=== PATIENT | female | born 1995 | race American Indian/Alaskan Native ===

== ENCOUNTER 2018-01-13 03:39 | Emergency (ER) | payer OTHER ==
[2018-01-13 04:33] LABS: Hematocrit 35.7 % (30.3-42.9); Hemoglobin 12.6 gm/dl (10.1-14.3); Mean Corpuscular HGB Conc 35 % (30-34); Mean Corpuscular Hemoglobin 28 pg (28-32); Mean Corpuscular Volume 80 fl (79-97); Platelet Count 294 K/mm3 (140-440); Red Blood Count 4.49 M/mm3 (3.65-5.03); Red Cell Distribution Width 14.7 % (13.2-15.2)
[2018-01-13 04:54] LABS: Alanine Aminotransferase 11 units/L (7-56); Albumin 3.8 g/dL (3.9-5); BUN/Creatinine Ratio 16; Blood Urea Nitrogen 13 mg/dL (7-17); Calcium 8.7 mg/dL (8.4-10.2); Hemolysis Index 48
[2018-01-13 05:11] LABS: Anisocytosis 1+; Stomatocytes Few; Total Cells Counted 100
[2018-01-13 07:03] LABS: Bilirubin,Urine NEG (Negative); Blood,Urine LG (Negative); Color,Urine Yellow (Yellow); Urobilinogen,Urine < 2.0 mg/dL (<2.0)
[2018-01-13 07:07] LABS: RBC,Urine > 182.0 /HPF (0.0-6.0)
[2018-01-13] MEDS ORDERED: TYLENOL PO ONE (08:20)
[2018-01-13] MEDS ORDERED: NACL 0.9% 1000 ML 1,000 ML IV ONE (08:20)
[2018-01-13] MEDS ORDERED: ZOFRAN IV ONE (08:20)
--- NOTE | 2018-01-13 09:38 | Ultrasound Report ---
Pelvic and transvaginal sonography: History: with vaginal bleeding. Findings: Uterus measures 8.2 x 4.2 x 4.6 cm. Endometrial thickness is 16.3 mm. No fluid in the endometrium. There is single into a tiny gestation noted. Gestational sac diameter is 19.6 mm corresponding to 6 weeks and 6 days which is positioned. CRL fetus is 2.8 mm corresponding to 5 weeks and 6 days of gestation. The gestational sac is identified in the cervix. heart rate could not be obtained. Right ovary 2.6 x 1.4 x 1.6 cm. Cyst in the right ovary measures 0.9 cm. Left ovary 2.5 x 0.8 x 1.7 cm. No mass. Impression: Single gestational sac within the cervix. No gestational sac identified in endometrium of the uterus. Dr. Lawson was informed of the findings at 9:15 AM on 01/13/18.
[2018-01-13] MEDS ORDERED: PERCOCET 5/325 ONE (09:44)
[2018-01-13] MEDS ORDERED: PERCOCET 5/325 PO ONE (09:45)
--- NOTE | 2018-01-13 10:10 | Emergency Department Report ---
ED Female HPI - General Chief complaint: Abdominal Pain Stated complaint: ABD/BACK PAIN Time Seen by Provider: 01/13/18 08:06 Source: patient Mode of arrival: Ambulatory Limitations: No Limitations - History of Present Illness Initial comments: This is a 23-year-old Female who is approximate 7 weeks complaining of lower abdominal pain. Patient states the pain is a 10 out of 10 in severity as crampy radiation to the back. Patient also started having some vaginal bleeding last night. Patient states the bleeding is at the level of.. Patient states that it is also some small clots present as well. Patient denies fevers nausea vomiting diarrhea chest pain cough at this time. - Related Data Previous Rx's Medication Instructions Recorded Last Taken Type Cyclobenzaprine HCl [Flexeril 5 MG 5 mg PO PRN #15 tablet 07/18/16 Unknown Rx TAB] Ibuprofen [Motrin] 600 mg PO Q8H PRN #30 tablet 07/18/16 Unknown Rx Ibuprofen [Motrin] 800 mg PO Q8HR PRN #20 tablet 01/13/18 Unknown Rx Nitrofurantoin Monohyd/M-Cryst 100 mg PO BID #14 capsule 01/13/18 Unknown Rx [Macrobid 100 mg Capsule] oxyCODONE /ACETAMINOPHEN [Percocet 1 tab PO Q6HR PRN #12 tablet 01/13/18 Unknown Rx 5/325] Allergies Allergy/AdvReac Type Severity Reaction Status Date / Time No Known Allergies Allergy Unverified 07/18/16 14:36 ED Review of Systems ROS: Stated complaint: ABD/BACK PAIN Other details as noted in HPI Comment: All other systems reviewed and negative ED Past Medical Hx - Past Medical History Previous Medical History?: No - Surgical History Past Surgical History?: No - Social History Smoking Status: Current Every Day Smoker Substance Use Type: None - Medications Home Medications: Home Medications Medication Instructions Recorded Confirmed Last Taken Type Cyclobenzaprine HCl [Flexeril 5 MG 5 mg PO PRN #15 tablet 07/18/16 Unknown Rx TAB] Ibuprofen [Motrin] 600 mg PO Q8H PRN #30 tablet 07/18/16 Unknown Rx Ibuprofen [Motrin] 800 mg PO Q8HR PRN #20 tablet 01/13/18 Unknown Rx Nitrofurantoin Monohyd/M-Cryst 100 mg PO BID #14 capsule 01/13/18 Unknown Rx [Macrobid 100 mg Capsule] oxyCODONE /ACETAMINOPHEN [Percocet 1 tab PO Q6HR PRN #12 tablet 01/13/18 Unknown Rx 5/325] ED Physical Exam - General Limitations: No Limitations General appearance: alert, in no apparent distress - Head Head exam: Present: atraumatic, normocephalic - Eye Eye exam: Present: normal appearance - ENT ENT exam: Present: mucous membranes moist - Neck Neck exam: Present: normal inspection - Respiratory Respiratory exam: Present: normal lung sounds bilaterally. Absent: respiratory distress, wheezes, rales - Cardiovascular Cardiovascular Exam: Present: regular rate, normal rhythm. Absent: systolic murmur, diastolic murmur, rubs, gallop - GI/Abdominal GI/Abdominal exam: Present: soft, tenderness (suprapubic tenderness), normal bowel sounds. Absent: distended, guarding, rebound, rigid - Extremities Exam Extremities exam: Present: normal inspection - Back Exam Back exam: Present: normal inspection - Neurological Exam Neurological exam: Present: alert, oriented X3 - Psychiatric Psychiatric exam: Present: normal affect, normal mood - Skin Skin exam: Present: warm, dry, intact, normal color. Absent: rash ED Course Vital Signs 01/13/18 01/13/18 01/13/18 03:48 08:07 08:40 Temperature 98.8 F 97.9 F Pulse Rate 103 H 83 Respiratory 20 18 18 Rate Blood Pressure 167/69 Blood Pressure 138/91 [Left] O2 Sat by Pulse 97 97 Oximetry ED Medical Decision Making - Lab Data Result diagrams: 01/13/18 04:06 01/13/18 04:06 Lab Results 01/13/18 01/13/18 01/13/18 Range/Units 04:06 04:06 04:06 WBC 11.9 H (4.5-11.0) K/mm3 RBC 4.49 (3.65-5.03) M/mm3 Hgb 12.6 (10.1-14.3) gm/dl Hct 35.7 (30.3-42.9) % MCV 80 (79-97) fl MCH 28 (28-32) pg MCHC 35 H (30-34) % RDW 14.7 (13.2-15.2) % Plt Count 294 (140-440) K/mm3 Lymph # Kosher Sealer Add Manual Diff Complete Total Counted 100 Seg Neuts % (Manual) 46.0 (40.0-70.0) % Band Neutrophils % 0 % Lymphocytes % (Manual) 46.0 H (13.4-35.0) % Reactive Lymphs % (Man) 0 % Monocytes % (Manual) 3.0 (0.0-7.3) % Eosinophils % (Manual) 3.0 (0.0-4.3) % Basophils % (Manual) 2.0 H (0.0-1.8) % Metamyelocytes % 0 % Myelocytes % 0 % Promyelocytes % 0 % Blast Cells % 0 % Nucleated RBC % Not Reportable Seg Neutrophils # Man 5.5 (1.8-7.7) K/mm3 Band Neutrophils # 0.0 K/mm3 Lymphocytes # (Manual) 5.5 H (1.2-5.4) K/mm3 Abs React Lymphs (Man) 0.0 K/mm3 Monocytes # (Manual) 0.4 (0.0-0.8) K/mm3 Eosinophils # (Manual) 0.4 (0.0-0.4) K/mm3 Basophils # (Manual) 0.2 H (0.0-0.1) K/mm3 Metamyelocytes # 0.0 K/mm3 Myelocytes # 0.0 K/mm3 Promyelocytes # 0.0 K/mm3 Blast Cells # 0.0 K/mm3 WBC Morphology Not Reportable Hypersegmented Neuts Not Reportable Hyposegmented Neuts Not Reportable Hypogranular Neuts Not Reportable Smudge Cells Not Reportable Toxic Granulation Not Reportable Toxic Vacuolation Not Reportable Dohle Bodies Not Reportable Pelger-Huet Anomaly Not Reportable Ahsan Rods Not Reportable Platelet Estimate Appears normal Clumped Platelets Not Reportable Plt Clumps, EDTA Not Reportable Large Platelets Not Reportable Giant Platelets Not Reportable Platelet Satelliting Not Reportable Plt Morphology Comment Not Reportable RBC Morphology Not Reportable Dimorphic RBCs Not Reportable Polychromasia Not Reportable Hypochromasia Not Reportable Poikilocytosis Not Reportable Anisocytosis 1+ Microcytosis 1+ Macrocytosis Not Reportable Spherocytes Not Reportable Pappenheimer Bodies Not Reportable Sickle Cells Not Reportable Target Cells Not Reportable Tear Drop Cells Not Reportable Ovalocytes Not Reportable Stomatocytes Few Helmet Cells Not Reportable [place] Bodies Not Reportable [place] Rings Not Reportable [place] Cells Not Reportable Bite Cells Not Reportable Crenated Cell Not Reportable Elliptocytes Not Reportable Acanthocytes (Spur) Not Reportable Rouleaux Not Reportable Hemoglobin C Crystals Not Reportable Schistocytes Not Reportable Malaria parasites Not Reportable Rashid Bodies Not Reportable Hem Pathologist Commnt No Sodium 139 (137-145) mmol/L Potassium 3.9 (3.6-5.0) mmol/L Chloride 102.1 (98-107) mmol/L Carbon Dioxide 25 (22-30) mmol/L Anion Gap 16 mmol/L BUN 13 (7-17) mg/dL Creatinine 0.8 (0.7-1.2) mg/dL Estimated GFR > 60 ml/min BUN/Creatinine Ratio 16 % Glucose 81 (65-100) mg/dL Calcium 8.7 (8.4-10.2) mg/dL Total Bilirubin 0.20 (0.1-1.2) mg/dL AST 18 (5-40) units/L ALT 11 (7-56) units/L Alkaline Phosphatase 63 (35-129) units/L Total Protein 7.9 (6.3-8.2) g/dL Albumin 3.8 L (3.9-5) g/dL Albumin/Globulin Ratio 0.9 % HCG, Quant 2083 H (0-4) mIU/mL Urine Color (Yellow) Urine Turbidity (Clear) Urine pH (5.0-7.0) Ur Specific [place] (1.003-1.030) Urine Protein (Negative) mg/dL Urine Glucose (UA) (Negative) mg/dL Urine Ketones (Negative) mg/dL Urine Blood (Negative) Urine Nitrite (Negative) Urine Bilirubin (Negative) Urine Urobilinogen (<2.0) mg/dL Ur Leukocyte Esterase (Negative) Urine WBC (Auto) (0.0-6.0) /HPF Urine RBC (Auto) (0.0-6.0) /HPF U Epithel Cells (Auto) (0-13.0) /HPF Blood Type Antibody Screen 01/13/18 01/13/18 Range/Units 04:07 05:54 WBC (4.5-11.0) K/mm3 RBC (3.65-5.03) M/mm3 Hgb (10.1-14.3) gm/dl Hct (30.3-42.9) % MCV (79-97) fl MCH (28-32) pg MCHC (30-34) % RDW (13.2-15.2) % Plt Count (140-440) K/mm3 Lymph # Add Manual Diff Total Counted Seg Neuts % (Manual) (40.0-70.0) % Band Neutrophils % % Lymphocytes % (Manual) (13.4-35.0) % Reactive Lymphs % (Man) % Monocytes % (Manual) (0.0-7.3) % Eosinophils % (Manual) (0.0-4.3) % Basophils % (Manual) (0.0-1.8) % Metamyelocytes % % Myelocytes % % Promyelocytes % % Blast Cells % % Nucleated RBC % Seg Neutrophils # Man (1.8-7.7) K/mm3 Band Neutrophils # K/mm3 Lymphocytes # (Manual) (1.2-5.4) K/mm3 Abs React Lymphs (Man) K/mm3 Monocytes # (Manual) (0.0-0.8) K/mm3 Eosinophils # (Manual) (0.0-0.4) K/mm3 Basophils # (Manual) (0.0-0.1) K/mm3 Metamyelocytes # K/mm3 Myelocytes # K/mm3 Promyelocytes # K/mm3 Blast Cells # K/mm3 WBC Morphology Hypersegmented Neuts Hyposegmented Neuts Hypogranular Neuts Smudge Cells Toxic Granulation Toxic Vacuolation Dohle Bodies Pelger-Huet Anomaly Ahsan Rods Platelet Estimate Clumped Platelets Plt Clumps, EDTA Large Platelets Giant Platelets Platelet Satelliting Plt Morphology Comment RBC Morphology Dimorphic RBCs Polychromasia Hypochromasia Poikilocytosis Anisocytosis Microcytosis Macrocytosis Spherocytes Pappenheimer Bodies Sickle Cells Target Cells Tear Drop Cells Ovalocytes Stomatocytes Helmet Cells [place] Bodies [place] Rings Jose Cells Bite Cells Crenated Cell Elliptocytes Acanthocytes (Spur) Rouleaux Hemoglobin C Crystals Schistocytes Malaria parasites Rashid Bodies Hem Pathologist Commnt Sodium (137-145) mmol/L Potassium (3.6-5.0) mmol/L Chloride (98-107) mmol/L Carbon Dioxide (22-30) mmol/L Anion Gap mmol/L BUN (7-17) mg/dL Creatinine (0.7-1.2) mg/dL Estimated GFR ml/min BUN/Creatinine Ratio % Glucose (65-100) mg/dL Calcium (8.4-10.2) mg/dL Total Bilirubin (0.1-1.2) mg/dL AST (5-40) units/L ALT (7-56) units/L Alkaline Phosphatase (35-129) units/L Total Protein (6.3-8.2) g/dL Albumin (3.9-5) g/dL Albumin/Globulin Ratio % HCG, Quant (0-4) mIU/mL Urine Color Yellow (Yellow) Urine Turbidity Clear (Clear) Urine pH 6.0 (5.0-7.0) Ur Specific [place] 1.013 (1.003-1.030) Urine Protein 30 mg/dl (Negative) mg/dL Urine Glucose (UA) Neg (Negative) mg/dL Urine Ketones Neg (Negative) mg/dL Urine Blood Lg (Negative) Urine Nitrite Neg (Negative) Urine Bilirubin Neg (Negative) Urine Urobilinogen < 2.0 (<2.0) mg/dL Ur Leukocyte Esterase Neg (Negative) Urine WBC (Auto) 49.0 H (0.0-6.0) /HPF Urine RBC (Auto) > 182.0 (0.0-6.0) /HPF U Epithel Cells (Auto) 1.0 (0-13.0) /HPF Blood Type A POSITIVE Antibody Screen Negative - Radiology Data Patient: NADEEM DAVIES MR#: [id number] : 1995 Acct: [id number] Age/Sex: 23 / F ADM Date: 01/13/18 Loc: ED Attending Dr: Ordering Physician: ALBERTA LAWSON MD Date of Service: 01/13/18 Procedure(s): US OB transvaginal Accession Number(s): [id number] cc: ALBERTA LAWSON MD Pelvic and transvaginal sonography: History: with vaginal bleeding. Findings: Uterus measures 8.2 x 4.2 x 4.6 cm. Endometrial thickness is 16.3 mm. No fluid in the endometrium. There is single into a tiny gestation noted. Gestational sac diameter is 19.6 mm corresponding to 6 weeks and 6 days which is positioned. CRL fetus is 2.8 mm corresponding to 5 weeks and 6 days of gestation. The gestational sac is identified in the cervix. heart rate could not be obtained. Right ovary 2.6 x 1.4 x 1.6 cm. Cyst in the right ovary measures 0.9 cm. Left ovary 2.5 x 0.8 x 1.7 cm. No mass. Impression: Single gestational sac within the cervix. No gestational sac identified in endometrium of the uterus. Dr. Lawson was informed of the findings at 9:15 AM on 01/13/18. Transcribed By: PTP Dictated By: BETSEY BLUM MD Electronically Authenticated By: BETSEY BLUM MD Signed Date/Time: 01/13/18 0916 - Medical Decision Making Patient is noted to have a gestational sac in the cervix which is suggestive of a inevitable miscarriage. Patient was given pain meds will be discharged home. Critical care attestation.: If time is entered above; I have spent that time in minutes in the direct care of this critically ill patient, excluding procedure time. ED Disposition Clinical Impression: Inevitable complete miscarriage without complication UTI (urinary tract infection) Qualifiers: Urinary tract infection type: acute cystitis Hematuria presence: without hematuria Qualified Code(s): N30.00 - Acute cystitis without hematuria Disposition: -01 TO HOME OR SELFCARE Is pt being admited?: No Does the pt Need Aspirin: No Condition: Stable Instructions: Spontaneous Miscarriage (ED), Urinary Tract Infection in Women ( ED) Referrals: DAYNA WONG MD [Staff Physician] - 3-5 Days
[2018-01-13 11:13] VITALS: BP 124/83
== END 2018-01-13 10:20 | disposition home or self-care (01) ==
LOC: ED 03:39
DX: O03.9 Complete or unspecified spontaneous abortion without complication (principal); O23.41 Unspecified infection of urinary tract in pregnancy, first trimester; Z3A.01 Less than 8 weeks gestation of pregnancy; O99.331 Smoking (tobacco) complicating pregnancy, first trimester
CPT/HCPCS: 36415; 76801; 76817; 80053; 81001; 84702; 85007; 85025; 86850; 86900; 86901; 96361; 96374; 99284; J2405; J7030

== ENCOUNTER 2018-12-04 13:29 | Emergency (ER) | payer MEDICAID, OTHER ==
--- NOTE | 2018-12-04 14:15 | Emergency Department Report ---
Blank Doc - Documentation Documentation: 1 day history of LUQ abdominal pain and diarrhea. Tried to eat wendys but made symptoms worsen. Denies . (tearful in triage_)
[2018-12-04 14:47] LABS: Basophils # (Auto) 0.1 K/mm3 (0.0-0.1); Basophils % (Auto) 0.9 % (0.0-1.8); Eosinophils # (Auto) 0.1 K/mm3 (0.0-0.4); Eosinophils % (Auto) 0.9 % (0.0-4.3); Hematocrit 39.5 % (30.3-42.9); Hemoglobin 13.7 gm/dl (10.1-14.3); Lymphocytes # (Auto) 3.1 K/mm3 (1.2-5.4); Lymphocytes % (Auto) 33.3 % (13.4-35.0); Mean Corpuscular HGB Conc 35 % (30-34); Mean Corpuscular Volume 80 fl (79-97); Monocytes # (Auto) 0.6 K/mm3 (0.0-0.8); Monocytes % (Auto) 6.8 % (0.0-7.3); Platelet Count 293 K/mm3 (140-440); Red Blood Count 4.94 M/mm3 (3.65-5.03); Red Cell Distribution Width 13.9 % (13.2-15.2)
[2018-12-04 14:58] LABS: Alanine Aminotransferase 9 units/L (7-56); Albumin 3.9 g/dL (3.9-5); BUN/Creatinine Ratio 12; Blood Urea Nitrogen 7 mg/dL (7-17); Calcium 8.8 mg/dL (8.4-10.2); Hemolysis Index 6
[2018-12-04 15:14] LABS: Bilirubin,Urine NEG (Negative); Blood,Urine NEG (Negative); Color,Urine Yellow (Yellow); Mucus,Urine FEW /HPF; Protein,Urine <15 mg/dL mg/dL (Negative); Urobilinogen,Urine < 2.0 mg/dL (<2.0)
[2018-12-04 15:17] LABS: HCG Qualitative,Urine Negative (Negative)
[2018-12-04] MEDS ORDERED: ZOFRAN IV ONE (16:23)
[2018-12-04] MEDS ORDERED: MORPHINE IV ONE (16:23)
[2018-12-04] MEDS ORDERED: NACL 0.9% 1000 ML 1,000 ML IV ONE (16:23)
--- NOTE | 2018-12-04 18:53 | Cat Scan Report ---
PROCEDURE: CT ABDOMEN PELVIS W CON TECHNIQUE: Computerized axial tomography of the abdomen and pelvis was performed after the IV inject ion of iodinated nonionic contrast. HISTORY: abd pain COMPARISONS: None . FINDINGS: Lower Lung logan: No focal abnormalities seen. Upper Abdomen: The liver, gallbladder, adrenal glands, the pancreas and spleen are unremarkable. Kidneys, Ureters and Urinary bladder: Kidneys and ureters are unremarkable. No renal masses cannot Hydronephrosis visualized. No ureteral calculi are seen. Urinary bladder is only partially filled and difficult to evaluate. No gross is seen Retroperitoneum: Atherosclerotic changes are seen in the abdominal aorta. No aneurysm is visualized. Nonspecific subcentimeter lymph nodes are seen in the retroperitoneum. No pathologically enlarged ly mph nodes are identified. Bowel: There is mild wall thickening seen throughout the transverse colon as well as a short segment of the descending colon. There is also mild decreased density in the submucosal adipose tissue. The appearance suggesting nonspecific colitis. Colon otherwise appears normal. No evidence of bowel obstr uction or ascites. There is no free intraperitoneal gas. Normal-appearing appendix is seen in the rig ht lower quadrant. Small umbilical hernia present containing adipose tissue. No herniated loops of jana wel are seen. Reproductive organs: Uterus is mildly deviated to the left of midline and otherwise is unremarkable. No abnormal adnexal masses are seen. Small amount of nonspecific free fluid is seen in the cul-de-sa c. Other: No acute bone abnormalities are identified. IMPRESSION: Mild prominence transverse colon and a short segment of the descending colon as described suggesting nonspecific colitis. Bowel loops otherwise are unremarkable. No other abnormalities are identified. This document is electronically signed by Chidi Palma MD., December 04 2018 06:51:27 PM ET
[2018-12-04 19:03] VITALS: BP 140/80
--- NOTE | 2018-12-04 19:07 | Emergency Department Report ---
ED Abdominal Pain HPI - General Chief Complaint: Abdominal Pain Stated Complaint: STOMACH/BACK PAIN Time Seen by Provider: 12/04/18 14:13 Source: patient Mode of arrival: Ambulatory Limitations: No Limitations - History of Present Illness Initial Comments: 23-year-old -[place] female comes in complaining of epigastric abdominal pain. Radiates to her back. Patient did not see nausea vomiting but does have diarrhea. MD Complaint: abdominal pain -: This morning Location: epigastric Migration to: no migration Severity scale (0 -10): 0 Quality: cramping Improves With: nothing Associated Symptoms: diarrhea - Related Data Previous Rx's Medication Instructions Recorded Last Taken Type Cyclobenzaprine HCl [Flexeril 5 MG 5 mg PO PRN #15 tablet 07/18/16 Unknown Rx TAB] Ibuprofen [Motrin] 600 mg PO Q8H PRN #30 tablet 07/18/16 Unknown Rx Ibuprofen [Motrin] 800 mg PO Q8HR PRN #20 tablet 01/13/18 Unknown Rx Nitrofurantoin Monohyd/M-Cryst 100 mg PO BID #14 capsule 01/13/18 Unknown Rx [Macrobid 100 mg Capsule] oxyCODONE /ACETAMINOPHEN [Percocet 1 tab PO Q6HR PRN #12 tablet 01/13/18 Unknown Rx 5/325] Ciprofloxacin HCl [Cipro] 500 mg PO QDAY #5 tablet 12/04/18 Unknown Rx Hyoscyamine Subl [Levsin Sl 0.125 0.125 mg SL Q6HR PRN #12 tab 12/04/18 Unknown Rx TAB] metroNIDAZOLE [Flagyl] 500 mg PO Q12HR #10 tab 12/04/18 Unknown Rx Allergies Allergy/AdvReac Type Severity Reaction Status Date / Time No Known Allergies Allergy Unverified 07/18/16 14:36 ED Review of Systems ROS: Stated complaint: STOMACH/BACK PAIN Other details as noted in HPI Comment: All other systems reviewed and negative ED Past Medical Hx - Past Medical History Previous Medical History?: No - Surgical History Past Surgical History?: No - Social History Smoking Status: Current Every Day Smoker Substance Use Type: None - Medications Home Medications: Home Medications Medication Instructions Recorded Confirmed Last Taken Type Cyclobenzaprine HCl [Flexeril 5 MG 5 mg PO PRN #15 tablet 07/18/16 Unknown Rx TAB] Ibuprofen [Motrin] 600 mg PO Q8H PRN #30 tablet 07/18/16 Unknown Rx Ibuprofen [Motrin] 800 mg PO Q8HR PRN #20 tablet 01/13/18 Unknown Rx Nitrofurantoin Monohyd/M-Cryst 100 mg PO BID #14 capsule 01/13/18 Unknown Rx [Macrobid 100 mg Capsule] oxyCODONE /ACETAMINOPHEN [Percocet 1 tab PO Q6HR PRN #12 tablet 01/13/18 Unknown Rx 5/325] Ciprofloxacin HCl [Cipro] 500 mg PO QDAY #5 tablet 12/04/18 Unknown Rx Hyoscyamine Subl [Levsin Sl 0.125 0.125 mg SL Q6HR PRN #12 tab 12/04/18 Unknown Rx TAB] metroNIDAZOLE [Flagyl] 500 mg PO Q12HR #10 tab 12/04/18 Unknown Rx ED Physical Exam - General Limitations: No Limitations General appearance: alert, in no apparent distress - Head Head exam: Present: atraumatic, normocephalic - Eye Eye exam: Present: normal appearance - ENT ENT exam: Present: mucous membranes moist - Respiratory Respiratory exam: Present: normal lung sounds bilaterally. Absent: respiratory distress - Cardiovascular Cardiovascular Exam: Present: regular rate, normal rhythm. Absent: systolic murmur, diastolic murmur, rubs, gallop - GI/Abdominal GI/Abdominal exam: Present: soft, normal bowel sounds - Extremities Exam Extremities exam: Present: normal inspection - Back Exam Back exam: Present: normal inspection - Neurological Exam Neurological exam: Present: alert, oriented X3, normal gait - Psychiatric Psychiatric exam: Present: normal affect, normal mood - Skin Skin exam: Present: warm, dry, intact, normal color. Absent: rash ED Course Vital Signs 12/04/18 12/04/18 14:13 19:02 Temperature 98.1 F Pulse Rate 72 80 Respiratory 18 18 Rate Blood Pressure 143/83 Blood Pressure 140/80 [Right] O2 Sat by Pulse 100 100 Oximetry ED Medical Decision Making - Lab Data Result diagrams: 12/04/18 14:26 12/04/18 14:26 Lab Results 12/04/18 12/04/18 12/04/18 Range/Units 14:26 14:26 14:38 WBC 9.4 (4.5-11.0) K/mm3 RBC 4.94 (3.65-5.03) M/mm3 Hgb 13.7 (10.1-14.3) gm/dl Hct 39.5 (30.3-42.9) % MCV 80 (79-97) fl MCH 28 (28-32) pg MCHC 35 H (30-34) % RDW 13.9 (13.2-15.2) % Plt Count 293 (140-440) K/mm3 Lymph % (Auto) 33.3 (13.4-35.0) % [place] % (Auto) 6.8 (0.0-7.3) % Eos % (Auto) 0.9 (0.0-4.3) % Baso % (Auto) 0.9 (0.0-1.8) % Lymph # 3.1 (1.2-5.4) K/mm3 [place] # 0.6 (0.0-0.8) K/mm3 Eos # 0.1 (0.0-0.4) K/mm3 Baso # 0.1 (0.0-0.1) K/mm3 Seg Neutrophils % 58.1 (40.0-70.0) % Seg Neutrophils # 5.4 (1.8-7.7) K/mm3 Sodium 137 (137-145) mmol/L Potassium 4.0 (3.6-5.0) mmol/L Chloride 105.2 (98-107) mmol/L Carbon Dioxide 23 (22-30) mmol/L Anion Gap 13 mmol/L BUN 7 (7-17) mg/dL Creatinine 0.6 L (0.7-1.2) mg/dL Estimated GFR > 60 ml/min BUN/Creatinine Ratio 12 % Glucose 91 (65-100) mg/dL Calcium 8.8 (8.4-10.2) mg/dL Total Bilirubin 0.50 (0.1-1.2) mg/dL AST 13 (5-40) units/L ALT 9 (7-56) units/L Alkaline Phosphatase 65 (35-129) units/L Total Protein 8.3 H (6.3-8.2) g/dL Albumin 3.9 (3.9-5) g/dL Albumin/Globulin Ratio 0.9 % Lipase 22 (13-60) units/L Urine Color Yellow (Yellow) Urine Turbidity Clear (Clear) Urine pH 7.0 (5.0-7.0) Ur Specific [place] 1.013 (1.003-1.030) Urine Protein <15 mg/dl (Negative) mg/dL Urine Glucose (UA) Neg (Negative) mg/dL Urine Ketones 20 (Negative) mg/dL Urine Blood Neg (Negative) Urine Nitrite Neg (Negative) Urine Bilirubin Neg (Negative) Urine Urobilinogen < 2.0 (<2.0) mg/dL Ur Leukocyte Esterase Neg (Negative) Urine WBC (Auto) 1.0 (0.0-6.0) /HPF Urine RBC (Auto) 3.0 (0.0-6.0) /HPF U Epithel Cells (Auto) 1.0 (0-13.0) /HPF Urine Mucus Few /HPF Urine HCG, Qual Negative (Negative) - Radiology Data Radiology results: report reviewed Patient: NADEEM DAVIES MR #: [id number] : 1995 Acct:[id number] Age/Sex: 23 / F ADM Date: 12/04/18 Loc: ED Attending Dr: Ordering Physician: KEYSHA TOWNSEND NP Date of Service: 12/04/18 Procedure(s): CT abdomen pelvis w con Accession Number(s): [id number] cc: KEYSHA TOWNSEND NP PROCEDURE: CT ABDOMEN PELVIS W CON TECHNIQUE: Computerized axial tomography of the abdomen and pelvis was performed after the IV injection of iodinated nonionic contrast. HISTORY: abd pain COMPARISONS: None . FINDINGS: Lower Lung logan: No focal abnormalities seen. Upper Abdomen: The liver, gallbladder, adrenal glands, the pancreas and spleen are unremarkable. Kidneys, Ureters and Urinary bladder: Kidneys and ureters are unremarkable. No renal masses cannot Hydronephrosis visualized. No ureteral calculi are seen. Urinary bladder is only partially filled and difficult to evaluate. No gross is seen Retroperitoneum: Atherosclerotic changes are seen in the abdominal aorta. No aneurysm is visualized. Nonspecific subcentimeter lymph nodes are seen in the retroperitoneum. No pathologically enlarged lymph nodes are identified. Bowel: There is mild wall thickening seen throughout the transverse colon as well as a short segment of the descending colon. There is also mild decreased density in the submucosal adipose tissue. The appearance suggesting nonspecific colitis. Colon otherwise appears normal. No evidence of bowel obstruction or ascites. There is no free intraperitoneal gas. Normal- appearing appendix is seen in the right lower quadrant. Small umbilical hernia present containing adipose tissue. No herniated loops of bowel are seen. Reproductive organs: Uterus is mildly deviated to the left of midline and otherwise is unremarkable. No abnormal adnexal masses are seen. Small amount of nonspecific free fluid is seen in the cul-de-sac. Other: No acute bone abnormalities are identified. IMPRESSION: Mild prominence transverse colon and a short segment of the descending colon as described suggesting nonspecific colitis. Bowel loops otherwise are unremarkable. No other abnormalities are identified. This document is electronically signed by Chidi Jaramillo MD., December 04 2018 06:51:27 PM ET Transcribed By: DFN Dictated By: CHIDI JARAMILLO MD Electronically Authenticated By: CHIDI JARAMILLO MD Signed Date/Time: 12/04/181852 DD/ 07 TD/TT: 12/04/181807 - Medical Decision Making Patient has been evaluated for this provider fast track. Patient be treated for colitis. Patient's increase her fluid intake events or diabetes tolerated and follow up with her primary care provider if symptoms persist or gets worse. Critical care attestation.: If time is entered above; I have spent that time in minutes in the direct care of this critically ill patient, excluding procedure time. ED Disposition Clinical Impression: Colitis Disposition: DC-01 TO HOME OR SELFCARE Is pt being admited?: No Does the pt Need Aspirin: No Condition: Stable Instructions: Abdominal Pain (ED) Additional Instructions: Take medication as prescribed. Increase her fluid intake and advance her diet as tolerated. Follow-up with her primary care provider if his symptoms persist or gets worse. Prescriptions: Ciprofloxacin HCl [Cipro] 500 mg PO QDAY #5 tablet metroNIDAZOLE [Flagyl] 500 mg PO Q12HR #10 tab Hyoscyamine Subl [Levsin Sl 0.125 TAB] 0.125 mg SL Q6HR PRN #12 tab PRN Reason: Pain , Severe (7-10) Referrals: SONDRA CABELLO MD [Primary Care Provider] - 3-5 Days Forms: Work/School Release Form(ED)
[2018-12-04] MEDS ORDERED: LEVSIN SL SL ONE (19:08)
== END 2018-12-04 19:24 | disposition home or self-care (01) ==
LOC: ED 13:29
DX: K52.9 Noninfective gastroenteritis and colitis, unspecified (principal); F17.200 Nicotine dependence, unspecified, uncomplicated
CPT/HCPCS: 36415; 74177; 80053; 81001; 81025; 83690; 85025; 96361; 96374; 96375; 99284; J2270; J2405; J7030; Q9967

== ENCOUNTER 2020-10-07 13:06 | Emergency (ER) | payer SELFPAY | END 2020-10-07 13:16 | LOC: ED 13:06 | DX: R05 Cough (principal); Z53.21 Procedure and treatment not carried out due to patient leaving prior to being seen by health care provider ==

== ENCOUNTER 2021-03-17 09:45 | Emergency (ER) | payer SELFPAY ==
[2021-03-17 10:59] VITALS: BP 104/77
[2021-03-17 11:52] LABS: Bacteria,Urine 1+ /HPF (Negative); Bilirubin,Urine NEG (Negative); Blood,Urine NEG (Negative); Color,Urine Yellow (Yellow); Mucus,Urine FEW /HPF; Protein,Urine <15 mg/dL mg/dL (Negative)
[2021-03-17] MEDS ORDERED: LIDOCAINE-MPF (1%) 10 MG/1 ML VIAL 5 ML INFILTRATI ONE (12:05)
[2021-03-17 12:07] LABS: HCG Qualitative,Urine Positive (Negative)
--- NOTE | 2021-03-17 12:51 | Ultrasound Report ---
ULTRASOUND PELVIS INDICATION: Left adnexal tenderness to palpation on exam. TECHNIQUE: Transvaginal. Duplex Color Doppler used: Yes. COMPARISON: CT abdomen and pelvis with contrast from 12/04/2018. Pelvic ultrasound from 01/13/2018. FINDINGS: Uterus: Present. Size: 7.7 x 4.3 x 5.3 cm. Endometrial complex: Normal measuring 1.1 cm. Mass lesions: None. Additional findings: None. Right Ovary: Size: 2.5 x 1.4 x 1.5 cm Blood flow: Normal. Cyst or mass: None. Left Ovary: Size: 4.4 x 1.8 x 2.2 cm Blood flow: Normal. Cyst or mass: A dominant follicle measures up to 1.3 cm. No other solid or cystic lesions. Urinary Bladder: Normal. Free Fluid: Small amount of free fluid is noted along the cul-de-sac. Additional Findings: None. IMPRESSION: 1. Nonspecific small amount of free fluid in the pelvis is likely physiologic in a patient of this ag e. Recent rupture of an ovarian cyst is also a consideration. 2. Additional findings as above. Signer Name: Brent Olmos MD Signed: 03/17/2021 12:47 PM Workstation Name: [id number]
--- NOTE | 2021-03-17 12:51 | Ultrasound Report ---
ULTRASOUND PELVIS INDICATION / CLINICAL INFORMATION: left adnexal ttp on exam. TECHNIQUE: Transabdominal. Duplex Color Doppler used: Yes. COMPARISON: None available FINDINGS: UTERUS: 7.7 x 4.3 x 5.3 cm. Endometrium is normal thickness measuring 10 mm. No focal uterine lesion identified. RIGHT ADNEXA: No significant ovarian cyst or mass. Normal color Doppler blood flow. LEFT ADNEXA: No significant ovarian cyst or mass Normal color Doppler blood flow. URINARY BLADDER: No significant abnormality. FREE FLUID: Small amount fluid within the posterior cul-de-sac ADDITIONAL FINDINGS: None. IMPRESSION: 1. No significant abnormality. Signer Name: Adonay Joaquin MD Signed: 03/17/2021 12:46 PM Workstation Name: [id number]
[2021-03-17] MEDS ORDERED: AZITHROMYCIN 250 MG TAB PO ONE (13:01)
--- NOTE | 2021-03-17 13:04 | Emergency Department Report ---
<JORJE HYLTON - Last Filed: 03/17/21 21:33> ED Female HPI - General Chief complaint: Urogenital-Female Stated complaint: POSSIBLE UTI Time Seen by Provider: 03/17/21 11:27 Source: patient Mode of arrival: Ambulatory Limitations: No Limitations - History of Present Illness Initial comments: Patient is a 26-year-old female presents emergency room with complaints of pelvic pain that radiates to her lower back that began 4 days ago. she has associated vaginal discharge, vaginal itching, urinary frequency, urinary urgency. States that she is sexually active without protection. She states her last menstrual cycle was 02/09/2021. she denies any fever, nausea, vomiting, diarrhea, vaginal bleeding. no pmhx. no allergies to meds. - Related Data Previous Rx's Medication Instructions Recorded Last Taken Type Cyclobenzaprine HCl [Flexeril 5 MG 5 mg PO PRN #15 tablet 07/18/16 Unknown Rx TAB] Ibuprofen [Motrin] 600 mg PO Q8H PRN #30 tablet 07/18/16 Unknown Rx Ibuprofen [Motrin] 800 mg PO Q8HR PRN #20 tablet 01/13/18 Unknown Rx Nitrofurantoin Monohyd/M-Cryst 100 mg PO BID #14 capsule 01/13/18 Unknown Rx [Macrobid 100 mg Capsule] oxyCODONE /ACETAMINOPHEN [Percocet 1 tab PO Q6HR PRN #12 tablet 01/13/18 Unknown Rx 5/325] Ciprofloxacin HCl [Cipro] 500 mg PO QDAY #5 tablet 12/04/18 Unknown Rx Hyoscyamine Subl [Levsin Sl 0.125 0.125 mg SL Q6HR PRN #12 tab 12/04/18 Unknown Rx TAB] metroNIDAZOLE [Flagyl] 500 mg PO Q12HR #10 tab 12/04/18 Unknown Rx cephALEXin [Keflex] 500 mg PO BID 7 Days #14 capsule 03/17/21 Unknown Rx metroNIDAZOLE [Flagyl] 500 mg PO BID 7 Days #14 tab 03/17/21 Unknown Rx Allergies Allergy/AdvReac Type Severity Reaction Status Date / Time No Known Allergies Allergy Unverified 07/18/16 14:36 ED Review of Systems Comment: All other systems reviewed and negative ED Past Medical Hx - Past Medical History Previous Medical History?: No - Surgical History Past Surgical History?: No - Social History Smoking Status: Current Every Day Smoker Substance Use Type: Alcohol - Medications Home Medications: Home Medications Medication Instructions Recorded Confirmed Last Taken Type Cyclobenzaprine HCl [Flexeril 5 MG 5 mg PO PRN #15 tablet 07/18/16 Unknown Rx TAB] Ibuprofen [Motrin] 600 mg PO Q8H PRN #30 tablet 07/18/16 Unknown Rx Ibuprofen [Motrin] 800 mg PO Q8HR PRN #20 tablet 01/13/18 Unknown Rx Nitrofurantoin Monohyd/M-Cryst 100 mg PO BID #14 capsule 01/13/18 Unknown Rx [Macrobid 100 mg Capsule] oxyCODONE /ACETAMINOPHEN [Percocet 1 tab PO Q6HR PRN #12 tablet 01/13/18 Unknown Rx 5/325] Ciprofloxacin HCl [Cipro] 500 mg PO QDAY #5 tablet 12/04/18 Unknown Rx Hyoscyamine Subl [Levsin Sl 0.125 0.125 mg SL Q6HR PRN #12 tab 12/04/18 Unknown Rx TAB] metroNIDAZOLE [Flagyl] 500 mg PO Q12HR #10 tab 12/04/18 Unknown Rx cephALEXin [Keflex] 500 mg PO BID 7 Days #14 capsule 03/17/21 Unknown Rx metroNIDAZOLE [Flagyl] 500 mg PO BID 7 Days #14 tab 03/17/21 Unknown Rx ED Physical Exam - General Limitations: No Limitations General appearance: alert, in no apparent distress - Head Head exam: Present: atraumatic, normocephalic - Eye Eye exam: Present: normal appearance - ENT ENT exam: Present: mucous membranes moist - Respiratory Respiratory exam: Present: normal lung sounds bilaterally. Absent: respiratory distress, wheezes, rales, rhonchi, stridor, chest wall tenderness, accessory muscle use, decreased breath sounds, prolonged expiratory - Cardiovascular Cardiovascular Exam: Present: regular rate, normal rhythm, normal heart sounds. Absent: systolic murmur, diastolic murmur, rubs, gallop - GI/Abdominal GI/Abdominal exam: Present: soft, tenderness (mild suprapubic ), normal bowel sounds. Absent: distended, guarding, rebound, rigid - External exam: Present: other (data analytics chief scientist: odalys lipscomb PA-C, there is moderate white discharge in the vaginal vault, no CMT, no adexnal masses, there is mild left adnexal ttp, no right adnexal ttp) - Neurological Exam Neurological exam: Present: alert, oriented X3 - Psychiatric Psychiatric exam: Present: normal affect, normal mood - Skin Skin exam: Present: warm, dry, intact ED Medical Decision Making - Radiology Data Radiology results: report reviewed Ordering Physician: STEPHEN COLEMAN Date of Service: 03/17/21 Procedure(s): US transvaginal Accession Number(s): [id number] cc: STEPHEN COLEMAN ULTRASOUND PELVIS INDICATION: Left adnexal tenderness to palpation on exam. TECHNIQUE: Transvaginal. Duplex Color Doppler used: Yes. COMPARISON: CT abdomen and pelvis with contrast from 12/04/2018. Pelvic ultrasound from 01/13/2018. FINDINGS: Uterus: Present. Size: 7.7 x 4.3 x 5.3 cm. Endometrial complex: Normal measuring 1.1 cm. Mass lesions: None. Additional findings: None. Right Ovary: Size: 2.5 x 1.4 x 1.5 cm Blood flow: Normal. Cyst or mass: None. Left Ovary: Size: 4.4 x 1.8 x 2.2 cm Blood flow: Normal. Cyst or mass: A dominant follicle measures up to 1.3 cm. No other solid or cystic lesions. Urinary Bladder: Normal. Free Fluid: Small amount of free fluid is noted along the cul-de-sac. Additional Findings: None. IMPRESSION: 1. Nonspecific small amount of free fluid in the pelvis is likely physiologic in a patient of this age. Recent rupture of an ovarian cyst is also a consideration. 2. Additional findings as above. Signer Name: Brent Olmos MD Signed: 03/17/2021 12:47 PM Workstation Name: [id number] Transcribed By: ALEXA Dictated By: Bretn Olmos MD Electronically Authenticated By: Brent Olmos MD Signed Date/Time: 03/17/21 1247 DD/ 1244 TD/TT: - Medical Decision Making Patient is a 26-year-old female presents emergency room with complaints of pelvic pain that radiates to her lower back that began 4 days ago. she has associated vaginal discharge, vaginal itching, urinary frequency, urinary urgency. States that she is sexually active without protection. She states her last menstrual cycle was 02/09/2021. she denies any fever, nausea, vomiting, diarrhea, vaginal bleeding. no pmhx. no allergies to meds. Vitals are normal. On exam patient has mild suprapubic abdominal ttp, no, guarding, no rebound, rigidity, normal bowel sounds, no peritoneal signs. chaperoned Pelvic examination shows evidence of white discharge and mild left adnexal tenderness palpation but no masses palpable, no CMT. UA shows evidence of bacteria. Urine is positive. Pelvic ultrasound: 1. Nonspecific small amount of free fluid in the pelvis is likely physiologic in a patient of this age. Recent rupture of an ovarian cyst is also a consideration. 2. Additional findings as above. Patient given ceftriaxone while in the emergency department, given that patient is given Zithromax while in the emergency department. Wet prep shows evidence of trichomonas and bacterial vaginosis. Discussed all results in detail with patient. Patient just had a missed cycle, lack of ultrasound findings could be due to very early , discussed also possibility of ectopic versus miscarriage and discussed the importance of close PARTITION ASSEMBLY MACHINE OPERATOR follow- up, she has not been having any vaginal bleeding. Patient given prescription for Keflex and Flagyl. Advised patient Please take medication as prescribed. Please have any partner tested and treated as well to prevent reinfection. Avoid sexual intercourse. Follow-up with PARTITION ASSEMBLY MACHINE OPERATOR, your urine test is positive, no on ultrasound at this time, could possibly represent early versus ectopic versus miscarriage, you need close power truck driver follow up. Return to emergency room for any new or worsening symptoms. please take a vitamin over the counter. follow up with medical records in one week for results of your gonorrhea and Chlamydia test but you have been treated for these today. ED Disposition Clinical Impression: Trichomonas infection, Bacterial vaginosis Disposition: DC-01 TO HOME OR SELFCARE Is pt being admited?: No Does the pt Need Aspirin: No Condition: Stable Instructions: Care, Bacterial Vaginosis, [id number], Trichomoniasis, Preventing Sexually Transmitted Infections, Adult, Bacterial Vaginosis (ED) Additional Instructions: Please take medication as prescribed. Please have any partner tested and treated as well to prevent reinfection. Avoid sexual intercourse. Follow-up with PARTITION ASSEMBLY MACHINE OPERATOR, your urine test is positive, no on ultrasound at this time, could possibly represent early versus ectopic versus miscarriage, you need close power truck driver follow up. Return to emergency room for any new or worsening symptoms. please take a vitamin over the counter. follow up with medical records in one week for results of your gonorrhea and Chlamydia test but you have been treated for these today. PAC [facility] in [place], [place] Address: [address], [place] [address] Prescriptions: metroNIDAZOLE [Flagyl] 500 mg PO BID 7 Days #14 tab cephALEXin [Keflex] 500 mg PO BID 7 Days #14 capsule Referrals: [facility] [Provider Group] - 3-5 Days INOCENCIA DAI MD [Staff Physician] - 3-5 Days [facility] [Provider Group] - 3-5 Days Forms: STI Treatment and Prevention Time of Disposition: 13:04 Print Language: TAJIK <LAM HANKINS - Last Filed: 03/19/21 01:19> ED Review of Systems ROS: Stated complaint: POSSIBLE UTI Other details as noted in HPI ED Course Vital Signs 03/17/21 10:58 Temperature 98.8 F Pulse Rate 71 Respiratory 16 Rate Blood Pressure 104/77 [Right] O2 Sat by Pulse 97 Oximetry Critical care attestation.: If time is entered above; I have spent that time in minutes in the direct care of this critically ill patient, excluding procedure time. ED Disposition Is pt being admited?: No Does the pt Need Aspirin: No
== END 2021-03-17 13:35 | disposition home or self-care (01) ==
LOC: ED 09:45
DX: A59.9 Trichomoniasis, unspecified (principal); N76.0 Acute vaginitis; B96.89 Other specified bacterial agents as the cause of diseases classified elsewhere; F17.200 Nicotine dependence, unspecified, uncomplicated; Z72.89 Other problems related to lifestyle; Z79.899 Other long term (current) drug therapy
CPT/HCPCS: 76830; 76856; 81001; 81025; 87086; 87210; 87591; 96372; 99284; J0696

== ENCOUNTER 2021-09-16 14:24 | Outpatient (CLI) | payer OTHER ==
[2021-09-16 15:00] VITALS: BP 110/66
[2021-09-16 15:36] LABS: Bacteria,Urine 4+ /HPF (Negative); Bilirubin,Urine NEG (Negative); Blood,Urine NEG (Negative); Color,Urine Yellow (Yellow); Mucus,Urine 1+ /HPF; RBC,Urine < 1.0 /HPF (0.0-6.0)
[2021-09-16 15:46] LABS: Amphetamine Screen,Urine Negative; Benzodiazepines Screen,Urine Negative; Cannabinoid Screen,Urine Negative; Cocaine Screen,Urine Negative; Methadone Screen,Urine Negative; Opiate Screen,Urine Negative
[2021-09-16] MEDS ORDERED: LACTATED RINGERS 1,000 ML IV ONE (16:04)
[2021-09-16] MEDS ORDERED: LACTATED RINGERS 500 ML IV ONE (16:09)
--- NOTE | 2021-09-16 16:25 | Event Note ---
Date: 09/16/21 pt presented to triage with c/o intermittent sharp lower abdominal pain, UA shows possible UTI 4+ bacteria. Will treat with macrobid and wait for C&S. incidentally, pt admitted to buying and using percocet daily for the last 3 years. She reports taking approx 30mg per day. Case management consulted, patient given contact for substance abuse help. patient and mother receptive.
== END 2021-09-16 16:54 | disposition home or self-care (01) ==
LOC: TRG 14:24 → APU 14:26 → TRG 16:54
PROVIDERS: ATTEND Student in an Organized Health Care Education/Training Program
DX: O26.893 Other specified pregnancy related conditions, third trimester (principal); Z3A.31 31 weeks gestation of pregnancy
CPT/HCPCS: 59025; 80307; 81001; 87086